=== PATIENT | female | born 1985 | race Caucasian/White ===

== ENCOUNTER → 2020-09-15 09:21 | Outpatient (CLI) | payer OTHER, SELFPAY ==
[2020-09-15 09:43] LABS: Add Manual Diff / Slide Review NO; Basophils Absolute Auto 100 /uL (0-100); Basophils Percent Auto 0.7 % (0-2); Eosinophils Absolute Auto 0 /uL (0-450); Eosinophils Percent Auto 0.2 % (2-4); Hematocrit 41.3 % (36-46); Hemoglobin 14.4 g/dL (12.0-16.0); Lymphocytes Absolute Auto 2100 /uL (1100-4500); Lymphocytes Percent Auto 24.2 % (25-40); Mean Corpuscular HGB Conc 34.8 % (30-36); Mean Corpuscular Hemoglobin 30.8 PG (26-34); Mean Corpuscular Volume 88.6 fL (80-100); Monocytes Absolute Auto 400 /uL (0-900); Monocytes Percent Auto 5.1 % (3-14); Neutrophils Absolute Auto 6000 /uL (1500-7000); Neutrophils Percent Auto 69.8 % (50-75); Platelet Count 250 X10^3/uL (150-400); Red Blood Cell Count 4.66 X10^6/uL (4.0-5.2); Red Cell Distribution Width 12.8 % (11.6-14.8); White Blood Cell Count 8.5 X10^3/uL (4.5-11.0)
[2020-09-15 10:45] LABS: Appearance Urine UA CLEAR; Bilirubin Urine UA NEGATIVE (NEGATIVE); Color Urine UA YELLOW; Glucose Urine UA NEGATIVE (Negative); Ketones Urine UA NEGATIVE (NEGATIVE); Leukocyte Esterase Urine UA NEGATIVE (NEGATIVE); Nitrite Urine UA NEGATIVE (Negative); Occult Blood Urine UA NEGATIVE (Negative); Protein Urine UA NEGATIVE (Negative); Urobilinogen Urine UA 0.2 E.U./dL (0.2)
[2020-09-15 11:20] LABS: Hepatitis B Surface Antigen NEGATIVE s/c (NEGATIVE)
[2020-09-15 11:37] LABS: HIV 1 & 2 Ab/Ag 4th Gen Combo NEGATIVE (NEGATIVE); Hep C Virus Ab w/Reflex Quant NEGATIVE s/c (NEGATIVE)
[2020-09-16 12:39] LABS: RPR Screen Non Reactive (Non Reactive); Varicella IgG Antibody 351 index (Immune >165)
== END ==
PROVIDERS: Family Provider Naturopath; PCP Naturopath; Referring Provider Specialist; Visit Provider Specialist
DX: Z34.81 Encounter for supervision of other normal pregnancy, first trimester (principal)
CPT/HCPCS: 36415; 80055; 81003; 86787; 86803; 86850; 86900; 86901; 87086; 87389

== ENCOUNTER → 2020-11-12 10:09 | Outpatient (CLI) | payer OTHER, SELFPAY ==
[2020-11-14 23:37] LABS: AFP, Serum 33.9 ng/mL (.); Calc Gestational Age Ultrasound (.); Estriol, Free 0.88 ng/mL (.); Inhibin A, Dimeric 127.03 pg/mL (.); Inhibin A, MoM 0.86 (.); Maternal Ethnicity Caucasian (.); Maternal Weight 162 lbs (.); Number of Fetuses No (.); OSBR Risk 1 IN 10000 (.); Results Report (.); Test Results *Screen Negative* (.); hCG, MoM 0.66 (.); hCG, Serum 19165 mIU/mL (.)
== END ==
PROVIDERS: Family Provider Naturopath; PCP Naturopath; Referring Provider Specialist; Visit Provider Specialist
DX: Z34.82 Encounter for supervision of other normal pregnancy, second trimester (principal); Z3A.17 17 weeks gestation of pregnancy
CPT/HCPCS: 36415; 82105; 82677; 84702; 86336

== ENCOUNTER → 2020-12-08 10:17 | Outpatient (CLI) | payer OTHER, SELFPAY ==
--- NOTE | 2020-12-08 10:18 | DI.US.S_ITS ---
PROCEDURE: US OB >= 14 WEEKS FETUS INDICATIONS: ANATOMY OUTSIDE/PRIOR DATING DATA: Last menstrual period (LMP): 07/13/2020. LMP-based estimated date of delivery (ESTEBAN): 04/19/2021. First dating scan (date and location): 09/15/[address] Cazares Office. Estimated date of delivery (ESTEBAN) from first dating scan: 04/19/2021. TECHNIQUE: Real-time scanning was performed of the fetus, with image documentation and biometric measurements. Endovaginal scanning: Not performed COMPARISON: [facility], , OB >= 14 WEEKS FETUS, 11/12/2020, 9:53. FINDINGS: General: A single living intrauterine gestation is present. Presentation: Vertex. Placenta: Placental position is right frontal , without previa. Amniotic fluid index: 12.7 cm, normal range is 5-24 cm; largest pocket 4.1 cm. heart rate: 152 beats per minute. Maternal cervical canal: 4.3 cm long. Normal lower limit is 2.5 cm. biometrics: Biparietal diameter: 21 weeks 6 days Head circumference: 21 weeks 5 days Abdominal circumference: 21 weeks 5 days Femur length: 22 weeks 1 day Estimated gestational age from initial scan: 21 weeks 1 day. Composite gestational age from present scan: 21 weeks 6 days Estimated weight and percentile: 454 g; 80% Measurement variability for biometric dating: +/- 7 days from 14 weeks to 15 weeks 6 days gestation, +/- 10 days from 16 weeks to 21 weeks 6 days gestation, +/- 2 weeks from 22 weeks to 27 weeks 6 days gestation, +/- 3 weeks for 28 weeks gestation or later. weight reference: 4500 g or EFW >90/95% is considered macrosomia or large for gestational age. EFW <10% is small for gestational age. EFW 5% or less is considered intra-uterine growth restriction. Anatomic survey: Neuro: Ventricles are non-dilated at less than 10 mm. Cisterna magna is normal at 3-11 mm. Cerebellum is normal in size and morphology. Nuchal skin fold: Normal at less than 6 mm between 14-21 weeks gestational age. Face: Nose and lips, facial profile are normal. Spine: No evidence for spina bifida. Heart: 4-chambered heart is present, with normal ventricular outflow tracts. Diaphragm: Diaphragm is intact. Stomach: Left-sided stomach is present. Kidneys: No hydronephrosis. Normal is less than 5 mm in 2nd trimester, less than 7 mm in 3rd trimester. Cord: 3-vessel cord has orthotopic insertion. Bladder: Normal in size. Extremities: All 4 extremities identified. IMPRESSION: 1. A single living intrauterine gestation with appropriate interval growth. 2. Normal anatomic survey. Dictated by: Roxi Martinez M.D. on 12/08/2020 at 15:55 Approved by: Roxi Martinez M.D. on 12/08/2020 at 17:56
== END ==
PROVIDERS: Family Provider Naturopath; PCP Naturopath; Referring Provider Specialist; Visit Provider Specialist
DX: Z34.82 Encounter for supervision of other normal pregnancy, second trimester (principal); Z3A.21 21 weeks gestation of pregnancy
CPT/HCPCS: 76811

== ENCOUNTER → 2021-03-30 11:43 | Outpatient (CLI) | payer OTHER, SELFPAY ==
[2021-03-31 15:37] LABS: Strep Grp B PCR NEG for Grp B Strep
== END ==
PROVIDERS: Family Provider Naturopath; PCP Naturopath; Visit Provider Specialist
DX: Z34.83 Encounter for supervision of other normal pregnancy, third trimester (principal); Z3A.37 37 weeks gestation of pregnancy
CPT/HCPCS: 87653

== ENCOUNTER 2021-04-06 11:05 | Outpatient (CLI) | payer OTHER, SELFPAY ==
--- NOTE | 2021-04-06 11:56 | P.TNLD_ITS ---
Visit Information Visit Information Date of evaluation: 04/06/21 Primary OB Provider: Jyothi Cazares Reason for Evaluation: Yes non-stress test non-stress test reason: other (Audible deceleration on routine office visit Doppler) [facility] Medical History (Updated 04/06/21 @ 11:58 by Jyothi Cazares MD) 38 weeks gestation of Left elbow fracture Migraine (~2017) Retained placenta w/o hemorrhage, delivered, current hospitalization (09/23/16) Vaginal delivery (09/23/16) Surgical History (Updated 08/31/20 @ 11:24 by Michelle Lopez, RN) History of elbow surgery S/P dilation and curettage (~09/23/16) Family History (Updated 08/31/20 @ 10:42 by Michelle Lopez, BETH) Mother No problems noted. Father No problems noted. Grandmother No problems noted. Grandfather No problems noted. Grandmother No problems noted. Grandfather No problems noted. Brother No problems noted. 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 current occupational exposures/hazards: Yes (using precautions ) Previous occupational history: [employer]er special emilee needs: No Smoking Status: Never smoker second hand exposure: No alcohol intake: former (pre- : social - weekends) substance use type: does not use Evaluation Evaluation Baseline heart rate: 125 Variability: Moderate (11-25) monitor accelerations: Present Monitor Decelerations: Absent Category of Tracing: Reactive Status: Category l Diagnosis, Plan/Disposition Final Diagnosis (1) 38 weeks gestation of : Status: Acute (2) heart deceleration: Status: Acute Plan/Disposition Plan: Reactive nonstress test without evidence of concern. Patient discharged home OB Disposition: home
== END 2021-04-06 12:08 | disposition home or self-care (01) ==
LOC: LABOR 12:08 → OB 04-20 01:33
PROVIDERS: Family Provider Naturopath; PCP Naturopath; Referring Provider Specialist; Visit Provider Specialist
DX: O36.8330 Maternal care for abnormalities of the fetal heart rate or rhythm, third trimester, not applicable or unspecified (principal); Z3A.38 38 weeks gestation of pregnancy
CPT/HCPCS: 59025; G0378; G0379

== ENCOUNTER 2021-04-14 21:38 | Inpatient (IN) | payer OTHER, SELFPAY ==
[2021-04-14 23:01] VITALS: BP 120/64
[2021-04-14] MEDS: DINOPROSTONE VAG (CERVIDIL) 10 MG VAG (23:01)
[2021-04-14 23:04] LABS: Add Manual Diff / Slide Review NO; Basophils Absolute Auto 200 /uL (0-100); Basophils Percent Auto 1.1 % (0-2); Eosinophils Absolute Auto 100 /uL (0-450); Eosinophils Percent Auto 0.4 % (2-4); Hemoglobin 12.5 g/dL (12.0-16.0); Lymphocytes Absolute Auto 3100 /uL (1100-4500); Lymphocytes Percent Auto 20.2 % (25-40); Mean Corpuscular HGB Conc 34.7 % (30-36); Mean Corpuscular Hemoglobin 31.8 PG (26-34); Mean Corpuscular Volume 91.7 fL (80-100); Monocytes Absolute Auto 1000 /uL (0-900); Monocytes Percent Auto 6.7 % (3-14); Neutrophils Absolute Auto 10900 /uL (1500-7000); Neutrophils Percent Auto 71.6 % (50-75); Platelet Count 203 X10^3/uL (150-400); Red Blood Cell Count 3.93 X10^6/uL (4.0-5.2); Red Cell Distribution Width 13.2 % (11.6-14.8); White Blood Cell Count 15.2 X10^3/uL (4.5-11.0)
[2021-04-14 23:51] LABS: COVID19 - ADMIT (NP swab/PCR) Negative (Negative)
[2021-04-15] MEDS: LACTATED RINGERS 1,000 ML 100 ML IV ×3 (09:50→23:19)
[2021-04-15] MEDS: OXYTOCIN PREMIX 30 UNIT/500 ML PLAST..BAG 200 UNIT IV (10:00)
[2021-04-16] MEDS: ePHEDrine 50 MG/ML VIAL (00:29)
--- NOTE | 2021-04-16 02:15 | P.HPOB_ITS ---
OB HPI Date/Time Date of admission: 04/14/21 Date Patient Seen: 04/15/21 Time Patient Seen: 07:50 History of Present Condition Chief complaint: observation of labor : 2 Para: 1 Estimated Date of Delivery: 04/19/21 Estimated Gestational Age (weeks): 39 Narrative: Jerri Martinez is a 35 year old female admitted for induction for distance from the hospital Indications Indication for induction OB: maternal distance History of Present care: good care, initiated at week # (9), number of visits (11) and pounds weight gain (30) Dating criteria: LMP confirmed by 1st trimester US Ultrasounds: normal mid trimester US Obstetrical complications: none Medical complications: none Preadmission Labs Blood type: A (+) positive -: Antibody screen: negative, GBS status: negative, HBsAG: negative, HIV: negative and RPR/VDLR: negative -: Chlamydia screen: not detected and Gonorrhea screen: not detected -: Rubella: immune and Varicella: immune HCAB: negative 1 hr GTT: 79 Prior (ies) History: 09/23/16 42 weeks 8#14 oz female retained placenta Evaluation Evaluation Baseline heart rate: 135 Variability: Moderate (11-25) monitor accelerations: Present Monitor Decelerations: Absent Category of Tracing: Reactive Status: Category l Cervical dilation (cm): 1 Cervical effacement (%): 40 station: -2 [facility] Medical History (Updated 04/14/21 @ 12:37 by Jyothi Cazares MD) Left elbow fracture Migraine (~2017) Retained placenta w/o hemorrhage, delivered, current hospitalization (09/23/16) Vaginal delivery (09/23/16) Surgical History (Updated 08/31/20 @ 11:24 by Michelle Lopez RN) History of elbow surgery S/P dilation and curettage (~09/23/16) Family History (Updated 08/31/20 @ 10:42 by Michelle Lopez RN) Mother No problems noted. Father No problems noted. Grandmother No problems noted. Grandfather No problems noted. Grandmother No problems noted. Grandfather No problems noted. Brother No problems noted. 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 Smoking Status: Never smoker second hand exposure: No alcohol intake: former (pre- : social - weekends) substance use type: does not use Meds Home Medications and Allergies Home Medications Medication Instructions Recorded Confirmed Type docosahexaenoic acid 200 mg 200 mg PO DAILY 12/09/19 04/15/21 History capsule ( DHA) cholecalciferol (vitamin D3) 250 250 mcg PO DAILY 08/31/20 04/14/21 History mcg (10,000 unit) capsule prenat.vits,brandyn,off-[id number] 2 tab PO DAILY 08/31/20 04/14/21 History omega-3 fatty acids 1,000 mg 1,000 mg PO DAILY 09/15/20 04/14/21 History capsule (Fish Oil Concentrate) Allergies Allergy/AdvReac Type Severity Reaction Status Date / Time No Known Allergies Allergy Verified 04/15/21 06:18 Review of Systems Review of Systems Narrative: Good movement. No leakage of fluid. No headaches, scotomata, epigastric pain. Exam Vital Signs (past 8 hours): Blood pressure 120/64, pulse 79, temperature 97.9? Narrative Exam Narrative: HEENT exam within normal limits. Lungs are clear to auscultation and percussion. Heart is regular rate and rhythm no S3-S4 murmurs. Abdomen is soft, nontender, no organomegaly. Fetus is vertex. Extremities without edema and nontender. Objective Labs Result Diagrams: 04/14/21 22:30 Assessment and Plan Assessment and Plan Assessment and Plan narrative: 2 para 1 at 39 week gestation admitted for induction for distance from the hospital.
--- NOTE | 2021-04-16 03:42 | P.PCNOB_ITS ---
Events: Meconium Stained Fluid (Thin) Labor & Delivery Delivery date: 04/16/21 Intrapartal Events: None Cervical ripening method: per Cervidil protocol Induction method: per pitocin protocol Delivery monitor: external FHT and external uterine Route of delivery: L&D Laceration Description: None Estimated blood loss (mL): 1,200 Anesthesia Type: Epidural Complications: Retained placenta fragment requiring uterine curettage Narrative: Patient arrived on Labor and delivery for induction by Cervidil for distance from the hospital. Her Cervidil was removed and she was started on IV Pitocin. She became more uncomfortable and had spontaneous rupture membranes for thin meconium-stained fluid. She received an epidural catheter for pain control. She had a drop in blood pressure with the epidural so required ephedrine x2. heart tones with variable decelerations that improved after increase in blood pressure. Patient made quick progress with some variable decelerations with category 2 tracing. Patient became complete and pushing. She delivered spontaneously over an intact perineum a viable male . The infant was placed on maternal abdomen. After the cord stopped pulsating the co rd was clamped, cut, and cord bloods obtained. The placenta delivered into the vagina but the rest of the placenta did not spontaneously deliver. Manual removal of the rest of placenta was performed. Patient was hemorrhaging and received IV Pitocin and Methergine. Endometrial curettage was performed with removal of retained placenta fragments. Bleeding slowed significantly. Patient now is stable with minimal bleeding. Baby is doing well. [place] Baby 1: gender: Male Presentation: vertex Position: Left Occiput Anterior Placenta delivery description: Manual Removal and Curettage Cord Vessel Description: 3 Vessels score (1 min): 7 score (5 min): 9 Plan for aftercare: Routine care (Monitor for bleeding)
[2021-04-16] MEDS: CEFAZOLIN 1 GM VIAL 2 GM IV (04:20)
[2021-04-16] MEDS: METHYLERGONOVINE 0.2 MG/ML VIAL IM (04:20)
[2021-04-16] MEDS: ACETAMINOPHEN 325 MG TABLET 650 MG PO ×3 (06:22→20:14)
[2021-04-16] MEDS: IBUPROFEN 600 MG TABLET PO ×3 (06:22→20:14)
[2021-04-16 09:32] LABS: Add Manual Diff / Slide Review NO; Basophils Absolute Auto 0 /uL (0-100); Basophils Percent Auto 0.2 % (0-2); Eosinophils Absolute Auto 0 /uL (0-450); Hematocrit 28.4 % (36-46); Hemoglobin 9.9 g/dL (12.0-16.0); Lymphocytes Absolute Auto 1700 /uL (1100-4500); Mean Corpuscular HGB Conc 34.9 % (30-36); Mean Corpuscular Volume 91.5 fL (80-100); Monocytes Absolute Auto 900 /uL (0-900); Neutrophils Absolute Auto 14500 /uL (1500-7000); Neutrophils Percent Auto 84.8 % (50-75); Platelet Count 181 X10^3/uL (150-400); Red Blood Cell Count 3.11 X10^6/uL (4.0-5.2); Red Cell Distribution Width 13.2 % (11.6-14.8); White Blood Cell Count 17.1 X10^3/uL (4.5-11.0)
[2021-04-16] MEDS: DOCUSATE 100 MG CAPSULE PO (09:43)
[2021-04-16] MEDS: FERROUS SULFATE 325 MG TABLET PO (09:43)
[2021-04-17] MEDS: ACETAMINOPHEN 325 MG TABLET 650 MG PO (01:58)
[2021-04-17] MEDS: IBUPROFEN 600 MG TABLET PO ×2 (01:58→09:48)
--- NOTE | 2021-04-17 09:45 | PM.OBDS.1 ---
Discharge Providers Provider Date of admission: 04/14/21 21:38 Discharge Date: 04/17/21 Primary care physician: KERRIE Silver Consults: 04/15/21 06:03 Consult to Anesthesiology Urgent Comment: Consulting Provider: Anesthesiologist Reason for consultation: Epidural Has provider been notified: No 04/17/21 03:39 Consult to Dispatcher Maintenance Routine Comment: Discharge provider: Jyothi Cazares MD Summary Hospital Course Date Patient Seen: 04/17/21 Time Patient Seen: 09:45 Diagnoses: 39 week gestation admitted for induction for distance from the hospital with spontaneous vaginal delivery and retained placental fragment causing acute blood loss anemia and requiring uterine curettage Hospital Course: Patient was admitted on 04/14/2021 for induction for distance from the hospital. She received Cervidil followed by Pitocin. She had an epidural catheter placed. She had a spontaneous vaginal delivery of a viable male however had retained placental fragment that caused acute blood loss anemia and required uterine curettage. Peripartum Data Infant Delivery Method: Natural Vaginal Laceration Description: None Procedures: Cervidil and Pitocin induction, epidural catheter, spontaneous vaginal delivery, uterine curettage complications: retained placenta (Requiring endometrial curettage) [place] 1: Gender: Male Disposition of : home Discharge Diagnosis (1) Retained placenta with hemorrhage, condition: Status: Acute (2) Vaginal delivery: Status: Acute (3) Anemia: Status: Acute Status at Discharge Cognitive/behavioral status at discharge: oriented Functional status at discharge: independent ambulation Overall status at discharge: patient is progressing back to baseline Time Spent with Patient Time attestation: Total time spent providing and/or coordinating discharge services: Time spent: Less than 30 minutes Objective Labs Result Diagrams: 04/16/21 09:00 Exam Vital Signs (past 8 hours): Blood pressure 110/78, pulse of 91, temperature 98.1? Narrative Exam Narrative: Abdomen is soft, nontender. Uterus is firm, at U, nontender. Mild lochia. Extremities without edema and nontender. Patient is Rh positive, rubella immune, received Tdap in the 3rd trimester. Discharge Plan Discharge Plan Patient Disposition: Home Discharge orders & Medications Prescriptions: Continued DHA 200 mg capsule 200 mg PO DAILY RF: 0 omega-3 fatty acids [Fish Oil Concentrate] 1,000 mg capsule 1,000 mg PO DAILY RF: 0 prenat.vits,brandyn,[id number]-lbpaq Tablet 2 tab PO DAILY RF: 0 cholecalciferol (vitamin D3) 250 mcg (10,000 unit) capsule 250 mcg PO DAILY RF: 0 Follow up/Referrals: Jyothi Cazares MD [Physician] - 1 Month Yolanda Lebron LMP [Primary Care Provider] - Diet/Activity/Treatments Diet: Regular Activity: Nothing in vagina for 6 weeks Skin/Wound/Dressing Care Report to your healthcare provider any signs of infection, such as:: chills, fever and increased pain Discharge Data Primary Care Provider: Yolanda Lebron
[2021-04-17] MEDS: DOCUSATE 100 MG CAPSULE PO (09:47)
[2021-04-17] MEDS: FERROUS SULFATE 325 MG TABLET PO (09:48)
[2021-04-17 10:00] VITALS: BP 110/78; PULSE 91; RESP 17; TEMP 36.7
== END 2021-04-17 10:25 | disposition home or self-care (01) | DRG 797 ==
PROVIDERS: Admitting Provider Specialist; Family Provider Naturopath; PCP Naturopath; Referring Provider Specialist; Visit Provider Specialist
DX: O77.0 Labor and delivery complicated by meconium in amniotic fluid (principal); O72.2 Delayed and secondary postpartum hemorrhage; Z37.0 Single live birth; D62 Acute posthemorrhagic anemia; O99.02 Anemia complicating childbirth; Z3A.39 39 weeks gestation of pregnancy; Z20.822 Contact with and (suspected) exposure to COVID-19
CPT/HCPCS: 36415; 59050; 59160; 59200; 59400; 85025; 86850; 86900; 86901; 87635; C9803; G0379; J0690; J2210; J2590